=== PATIENT | female | born 1980 | race Caucasian/White ===

== ENCOUNTER 2021-07-06 13:52 | Emergency (ER) | payer OTHER ==
[~2021-07-06] VITALS: Ht 167.6 cm; Wt 67.6 kg
[2021-07-06] MEDS ORDERED: PROZAC20 M1 PO (14:16)
[2021-07-06] MEDS ORDERED: ADDERALL 10 MG10 MG PO (14:17)
[2021-07-06 15:23] VITALS: BP 107/68
== END 2021-07-06 15:24 | disposition home or self-care (01) ==
LOC: M.ERS 13:52
DX: S16.1XXA Strain of muscle, fascia and tendon at neck level, initial encounter (principal); S06.9X9A Unspecified intracranial injury with loss of consciousness of unspecified duration, initial encounter; F32.9 Major depressive disorder, single episode, unspecified; Z86.16 Personal history of COVID-19; Z79.899 Other long term (current) drug therapy; W18.39XA Other fall on same level, initial encounter; Y93.89 Activity, other specified; Y92.89 Other specified places as the place of occurrence of the external cause; Y99.8 Other external cause status